=== PATIENT | female | born 1985 | race Two or more races ===

== ENCOUNTER 2024-08-14 05:49 | Day surgery (SDC) | payer OTHER ==
[2024-08-14] MEDS ORDERED: TRAMADOL HCL50 MG PO (07:53)
[2024-08-14] MEDS ORDERED: TYLENOL ARTHRI650 MG PO (07:53)
[2024-08-14] MEDS ORDERED: KETO10TA2 PO (07:53)
[2024-08-14] MEDS ORDERED: PEPCID AC20 MG PO (07:53)
[2024-08-14] MEDS ORDERED: MIRALAX17 GM PO (07:53)
[2024-08-14] MEDS ORDERED: CEFAZOLIN SODIUM 1,000 MG VIAL IV ONE (08:15)
[2024-08-14] MEDS ORDERED: BUPIVACAINE HCL 30 ML VIAL IJ ONE (08:15)
[2024-08-14] MEDS ORDERED: MORPHINE SULFATE 4 MG/ML VIAL IV ONE (09:10)
== END 2024-08-14 11:10 | disposition home or self-care (01) ==
LOC: CIR.AMB 05:49
PROVIDERS: ATTEND Surgery
DX: K42.0 Umbilical hernia with obstruction, without gangrene (principal)
CPT/HCPCS: 49594; C1781